=== PATIENT | female | born 1965 | race Caucasian/White ===

== ENCOUNTER 2017-03-07 16:27 | Emergency (ER) | payer MEDICAID, OTHER ==
[~2017-03-07] VITALS: Ht 160 cm; Wt 81.8 kg
[~2017-03-07 16:27] MED LIST: ATOR20TA86 PO; FISH1CAP51 PO; HYDR25TA PO; LISI-662 PO
[2017-03-07] MEDS ORDERED: BUPIVACAINE HCL 0.25% 50 ML VIAL SQ ONE (17:30)
[2017-03-07] MEDS ORDERED: TraMADol HCL 50 MG TABLET PO ONE (17:45)
[2017-03-07 20:06] VITALS: BP 109/54
== END 2017-03-07 20:45 | disposition home or self-care (01) ==
LOC: EMS 16:31
DX: S61.512A Laceration without foreign body of left wrist, initial encounter (principal); S61.511A Laceration without foreign body of right wrist, initial encounter; R55 Syncope and collapse; E78.00 Pure hypercholesterolemia, unspecified; I10 Essential (primary) hypertension; W45.8XXA Other foreign body or object entering through skin, initial encounter; Y93.89 Activity, other specified; Y92.89 Other specified places as the place of occurrence of the external cause; Y99.8 Other external cause status
CPT/HCPCS: 12004; 12044; 73110; 99285; J3490; 12005; 96372